=== PATIENT | female | born 1985 | race Caucasian/White ===

== ENCOUNTER 2017-01-23 17:09 | Emergency (ER) | payer OTHER ==
[2017-01-23 17:15] VITALS: RESP 16; TEMP 97.3; O2SAT 98
--- NOTE | 2017-01-23 18:10 | RAD ---
PROCEDURE: Left Ankle Radiographs. HISTORY: Pain s/p fall COMPARISON: None available. FINDINGS: BONES: No acute displaced fracture. JOINTS: No dislocation. SOFT TISSUES: Soft tissue swelling. No evidence of radiopaque foreign body. OTHER FINDINGS: None. IMPRESSION: Soft tissue swelling. No acute displaced fracture, dislocation, or significant joint effusion identified. If symptoms persist or if there is clinical concern, x-ray follow-up in 7-10 days should be considered.
--- NOTE | 2017-01-23 18:24 | RAD ---
PROCEDURE: Radiographs of the left tibia and fibula. HISTORY: Pain s/p fall COMPARISON: None available. TECHNIQUE: Frontal and lateral views obtained. FINDINGS: BONES: No acute displaced fracture. JOINT SPACES: No dislocation. OTHER FINDINGS: Soft tissues appear unremarkable. No evidence of radiopaque foreign body. IMPRESSION: No acute displaced fracture, dislocation, or significant joint effusion identified. If symptoms persist, or if there is continued clinical concern, x-ray follow-up in 7-10 days should be considered.
--- NOTE | 2017-01-23 18:28 | C.PDOC ---
- HPI Time Seen by Provider: 01/23/17 17:22 Chief Complaint (Nursing): Lower Extremity Problem/Injury History Per: Patient, EMS Injury Occurred (Timing): Just Before Arrival Description Of Injury (Context): Pt fell down stairs Location Of Injury: Right: Leg, Left: Ankle Severity: Moderate Additional History Per: Prior Records Past Medical History Reviewed: Historical Data, Nursing Documentation, Vital Signs Vital Signs: Last Vital Signs Temp 97.3 F L 01/23/17 17:13 Pulse 80 01/23/17 17:13 Resp 16 01/23/17 17:13 BP 113/76 01/23/17 17:13 Pulse Ox 98 01/23/17 17:13 - Medical History PMH: No Chronic Diseases Family History: States: Unknown Family Hx - Social History Hx Tobacco Use: No Hx Alcohol Use: No Hx Substance Use: No - Immunization History Hx Tetanus Toxoid Vaccination: No Hx Influenza Vaccination: No Hx Pneumococcal Vaccination: No Review Of Systems Except As Marked, All Systems Reviewed And Found Negative. Constitutional: Negative for: Fever, Weakness Cardiovascular: Negative for: Chest Pain Respiratory: Negative for: Shortness of Breath Gastrointestinal: Negative for: Vomiting, Abdominal Pain Musculoskeletal: Positive for: Leg Pain (right). Negative for: Neck Pain Skin: Negative for: Rash Neurological: Negative for: Weakness, Numbness, Seizures, Altered Mental Status , Headache Physical Exam - Physical Exam Appears: Non-toxic, No Acute Distress Skin: Normal Color, Warm, Dry, No Rash Head: Atraumatic, Normacephalic Eye(s): bilateral: Normal Inspection, PERRL, EOMI Neck: Normal ROM, Supple Extremity: Normal ROM, Tenderness (around left lateral mal and right anterior leg), No Calf Tenderness, Capillary Refill (wnl), No Deformity, Swelling ( around left lateral mal.) Pulses: Left Dorsalis Pedis: Normal, Right Dorsalis Pedis: Normal Neurological/Psych: Oriented x3, Normal Motor, Normal Sensation ED Course And Treatment O2 Sat by Pulse Oximetry: 98 Pulse Ox Interpretation: Normal - Other Rad Left ankle x-rays X-Ray: Viewed By Me, Read By Radiologist Interpretation: IMPRESSION: Soft tissue swelling. No acute displaced fracture , dislocation, or significant joint effusion identified. Right tib/fib x-rays X-Ray: Interpreted by Me, Viewed By Me Interpretation: No acute fx. Progress Note: Left ankle was placed in marc wrap. Reassessment Condition: Improved Disposition Counseled Patient/Family Regarding: Studies Performed, Diagnosis, Need For Followup, Rx Given - Disposition Referrals: [facility] [Outside] Gama Aquino MD [Staff Provider] - Disposition: HOME/ ROUTINE Disposition Time: 18:30 Condition: IMPROVED Additional Instructions: Rest. Elevate. Ice. MARC wrap. Follow up with an orthopedic doctor if still symptomatic in 1 week. Return to the ER if you develop worsening of symptoms or if you have any other concerns. Prescriptions: Naproxen [Naprosyn] 1 tab PO BID PRN #20 tab PRN Reason: Pain Instructions: Ankle Sprain (ED) Print Language: GREEK - Clinical Impression Clinical Impression: Left ankle sprain, Contusion of right leg
--- NOTE | 2017-01-23 18:45 | RAD ---
PROCEDURE: Radiographs of the right tibia and fibula. HISTORY: r/o fx COMPARISON: None available. TECHNIQUE: Frontal and lateral views obtained. FINDINGS: BONES: Bone alignment and mineralization are normal. There is no acute fracture or bone destruction JOINT SPACES: Unremarkable. OTHER FINDINGS: None. IMPRESSION: No acute fracture.
[2017-01-23 18:50] VITALS: BP 132/85; PULSE 84
== END 2017-01-23 18:49 | disposition home or self-care (01) ==
LOC: C.ER 17:09
DX: S93.402A Sprain of unspecified ligament of left ankle, initial encounter (principal); S80.11XA Contusion of right lower leg, initial encounter; W10.9XXA Fall (on) (from) unspecified stairs and steps, initial encounter

== ENCOUNTER 2017-06-06 09:06 | Emergency (ER) | payer OTHER ==
[2017-06-06 09:22] VITALS: RESP 16
[2017-06-06] MEDS ORDERED: Sodium Chloride 0.9% 1,000 ML IV ONE (09:44)
--- NOTE | 2017-06-06 09:49 | C.PDOC ---
History Of Present Illness 32 y/o female, history of hyperlipidemia, c/o abdominal pain "for a long time" but worsening over the last few days. Patient reports pain localized to epigastric region. Denies fevers, nausea, vomiting, or other complaints. Time Seen by Provider: 06/06/17 09:31 Chief Complaint (Nursing): Abdominal Pain History Per: Patient History/Exam Limitations: no limitations Onset/Duration Of Symptoms: Days Current Symptoms Are (Timing): Still Present Location Of Pain/Discomfort: Epigastric Radiation Of Pain To:: None Quality Of Discomfort: "Pain" Associated Symptoms: denies: Fever, Chills, Nausea, Vomiting, Diarrhea Recent travel outside of the [place]: No Abnormal Vaginal Bleeding: No Past Medical History Reviewed: Historical Data, Nursing Documentation, Vital Signs Vital Signs: Last Vital Signs Temp 97.7 F 06/06/17 09:20 Pulse 66 06/06/17 09:20 Resp 16 06/06/17 09:20 BP 106/77 06/06/17 09:20 Pulse Ox 99 06/06/17 10:00 - Medical History PMH: No Chronic Diseases - [facility] Procedures MONITORING NOS (06/03/13) Family History: States: Unknown Family Hx - Social History Hx Tobacco Use: No Hx Alcohol Use: No Hx Substance Use: No - Immunization History Hx Tetanus Toxoid Vaccination: No Hx Influenza Vaccination: No Hx Pneumococcal Vaccination: No Review Of Systems Except As Marked, All Systems Reviewed And Found Negative. Constitutional: Negative for: Fever, Chills Cardiovascular: Negative for: Chest Pain Respiratory: Negative for: Cough, Shortness of Breath Gastrointestinal: Positive for: Abdominal Pain. Negative for: Nausea, Vomiting Skin: Negative for: Rash Physical Exam - Physical Exam Appears: Non-toxic, No Acute Distress Skin: Normal Color, Warm, Dry Head: Atraumatic, Normacephalic Oral Mucosa: Moist Chest: Symmetrical Cardiovascular: Rhythm Regular, No Murmur Respiratory: Normal Breath Sounds, No Rales, No Rhonchi, No Wheezing Gastrointestinal/Abdominal: Soft, Tenderness (epigastric), No Guarding, No Rebound Back: Normal Inspection, No CVA Tenderness Extremity: Normal ROM, Capillary Refill (< 2 sec. ) Neurological/Psych: Oriented x3, Normal Speech, Normal Cognition ED Course And Treatment - Laboratory Results Result Diagrams: 06/06/17 10:05 06/06/17 10:05 O2 Sat by Pulse Oximetry: 99 (RA) Pulse Ox Interpretation: Normal Medical Decision Making Medical Decision Making: consider gastritis, pud, gallbladder disease (noted recent us with gallstones) Plan: * Protonix, IVF * Labs, Ultrasound, UA * reassess Progress:pt on period, noted blood in urine 1115: pt reassesed; pain improved. abd soft no ttp. pt notified of results of gallstones, no e/o of cholecystis. no leukocytosis, no fever. strict return precautions advised. Disposition - Disposition Referrals: Abbi SILVEIRA,MD [facility] [Medical Doctor] - Twin Rae MD [Staff Provider] - [facility] [Outside] [facility] [Outside] [facility] [Outside] [facility] [Outside] Disposition: HOME/ ROUTINE Disposition Time: 11:14 Condition: STABLE Additional Instructions: please see specialist. return to er with worsening symptoms or concerns. Instructions: Gallstones (ED), Acute Abdominal Pain (DC) Forms: [employer] (Icelandic) Print Language: SINHALA - Clinical Impression Clinical Impression: Abdominal pain, Cholelithiasis - Scribe Statement The provider has reviewed the documentation as recorded by the Scribe SM Provider Attestation: All medical record entries made by the Scribe were at my direction and personally dictated by me. I have reviewed the chart and agree that the record accurately reflects my personal performance of the history, physical exam, medical decision making, and the department course for this patient. I have also personally directed, reviewed, and agree with the discharge instructions and disposition.
[2017-06-06 09:54] LABS: URINE BILIRUBIN NEGATIVE (NEGATIVE); URINE BLOOD 3+ (NEGATIVE); URINE COLOR Yellow (YELLOW); URINE GLUCOSE (UA) NORMAL (Normal); URINE KETONE NEGATIVE (NEGATIVE); URINE PROTEIN NEGATIVE (NEGATIVE); URINE UROBILINOGEN NORMAL mg/dL (0.2-1.0); WBC URINE 2 /hpf (0-5)
[2017-06-06] MEDS ORDERED: Sodium Chloride 0.9% 1,000 ML ONE (09:55)
[2017-06-06 09:57] LABS: RBC URINE 4 /hpf (0-3); URINE LEUKOCYTE ESTERASE NEGATIVE Leu/uL (Negative)
[2017-06-06 10:13] LABS: BASO # 0.1 K/uL (0.0-0.2); BASO % 1.1 % (0.0-2.0); EOS # 0.2 K/uL (0.0-0.7); EOS % 3.7 % (0.0-4.0); HEMATOCRIT 38.6 % (34.0-47.0); LYMPH # 2.1 K/uL (1.0-4.3); LYMPH % 31.9 % (20.0-40.0); MEAN CELL VOLUME 90.5 fL (81.0-99.0); MEAN CORPUSCULAR HEMOGLOBIN 30.5 pg (27.0-31.0); MEAN CORPUSCULAR HGB CONC 33.7 g/dL (33.0-37.0); MEAN PLATELET VOLUME 10.9 fL (7.2-11.7); MONO # 0.5 K/uL (0.0-0.8); MONO % 7.5 % (0.0-10.0); RED CELL DISTRIBUTION WIDTH 12.8 % (11.5-14.5); WHITE BLOOD COUNT 6.7 K/uL (4.8-10.8)
[2017-06-06 10:21] LABS: ALKALINE PHOSPHATASE 99 U/L (38-126); ALT/SGPT 55 U/L (9-52); AST/SGOT 26 U/L (14-36); BILIRUBIN,TOTAL 0.4 mg/dL (0.2-1.3); BLOOD UREA NITROGEN 12 mg/dL (7-17); CALCIUM 8.1 mg/dl (8.6-10.4); CARBON DIOXIDE 26 mmol/L (22-30); CHLORIDE 102 mmol/L (98-107); GFR AFRICAN-AMERICAN > 60; GLUCOSE,RANDOM 86 mg/dL (65-105); INR 1.2; POTASSIUM 3.6 mmol/L (3.6-5.2); SODIUM 138 mmol/L (132-148); TOTAL PROTEIN 7.9 g/dL (6.3-8.3)
[2017-06-06 10:22] LABS: BILIRUBIN,DIRECT 0.2 mg/dL (0.0-0.4)
--- NOTE | 2017-06-06 11:10 | US ---
HISTORY: abd pain COMPARISON: None. TECHNIQUE: Sonographic evaluation of the abdomen. FINDINGS: LIVER: Measures 16.4 cm. Diffusely increased echogenicity of the liver parenchyma. Consistent fatty infiltration. No mass. No biliary dilatation. Smooth contour. Hepatopetal portal venous flow demonstrated. GALLBLADDER: Cholelithiasis. No mural thickening or pericholecystic fluid. Negative sonographic Baldwin sign. COMMON BILE DUCT: Measures 3 mm. No stones. No dilatation. PANCREAS: Unremarkable as visualized. No mass. No ductal dilatation. RIGHT KIDNEY: Measures 12.9cm. Normal echogenicity. No calculus, mass, or hydronephrosis. LEFT KIDNEY: Measures 12.1cm. Normal echogenicity. No calculus, mass, or hydronephrosis. SPLEEN: Normal in size and contour. No mass. AORTA: No aneurysmal dilatation. IVC: Unremarkable. OTHER FINDINGS: None. IMPRESSION: Fatty liver. Cholelithiasis without evidence of cholecystitis. No additional abnormality.
[2017-06-06 11:26] VITALS: BP 108/72; PULSE 64; TEMP 98.2; O2SAT 100
== END 2017-06-06 11:26 | disposition home or self-care (01) ==
LOC: C.ER 09:06 → MERGE 09:06 → C.ER 11:26
DX: K80.20 Calculus of gallbladder without cholecystitis without obstruction (principal); R10.9 Unspecified abdominal pain; E78.5 Hyperlipidemia, unspecified
CPT/HCPCS: 76700; 80053; 81001; 82248; 83690; 84703; 85025; 85610; 85730; 96361; 96374; 99285; C9113; J7040

== ENCOUNTER 2017-06-27 11:53 | Day surgery (SDC) | payer SELFPAY ==
[2017-06-20 08:52] VITALS: BMI 41.3
[2017-06-27] MEDS ORDERED: Bupivacaine-Epi 0.25%-1:200,000 PF Inj ONE (12:48)
[2017-06-27] MEDS ORDERED: Lidocaine 1% Inj (20ml) ONE ×2 (12:48→13:11)
[2017-06-27] MEDS ORDERED: ceFAZolin IV 1 gm in Dextrose 1 GM/50 ML BAG IVPB ONE (13:11)
[2017-06-27] MEDS ORDERED: Lactated Ringer's 1,000 ML IV ONE ×2 (13:11→14:48)
[2017-06-27] MEDS ORDERED: Bupivacaine 0.5%/Epi 1:200,000 (10 ML SOL) ONE (13:11)
[2017-06-27] MEDS ORDERED: Propofol 10 mg/ml Inj (20 ML) ONE (13:12)
[2017-06-27] MEDS ORDERED: Midazolam 2 MG/2 ML VIAL ONE (13:12)
[2017-06-27] MEDS ORDERED: Rocuronium 10 mg/ml (5 ml) ONE (13:12)
[2017-06-27] MEDS ORDERED: Succinylcholine Chloride 20 mg/ml Syr (5 ml) IV ONE (13:12)
--- NOTE | 2017-06-27 14:39 | PCM.SURG1 ---
Surgeon's Initial Post Op Note - Surgeon's Notes Surgeon: Dr Acosta Welding Foreman: Dr Still PGY3, Dr Gamino PGY1 Type of Anesthesia: General Endo Pre-Operative Diagnosis: symptomatic cholelithiasis Operative Findings: see report Post-Operative Diagnosis: see report Operation Performed: laparoscopic cholecystectomy Specimen/Specimens Removed: gallbladder Estimated Blood Loss: EBL {In ML}: 10 Blood Products Given: N/A Drains Used: No Drains Post-Op Condition: Good Date of Surgery/Procedure: 06/27/17 Time of Surgery/Procedure: 14:38
[2017-06-27] MEDS ORDERED: Oxycodone/Acetaminophen 5/325 mg Tab PO PRN (14:40)
[2017-06-27] MEDS ORDERED: Neostigmine Methylsulfate 3mg/3ml Syringe IV ONE (14:47)
[2017-06-27] MEDS ORDERED: Sodium Chloride 0.9% 1,000 ML IV ONE (14:48)
[2017-06-27] MEDS: HYDROmorphone 0.5 mg/0.5 ml ISec IVP PRN ×2 (15:03→16:10)
[2017-06-27 17:00] VITALS: BP 110/80; PULSE 80; RESP 18; TEMP 97; O2SAT 100
--- NOTE | 2017-06-28 01:36 | OP ---
PROCEDURE DATE: 06/27/2017 PREOPERATIVE DIAGNOSIS: Chronic cholecystitis and cholelithiasis. POSTOPERATIVE DIAGNOSES: 1. Chronic cholecystitis and cholelithiasis. 2. Post infectious adhesion. PROCEDURES DONE: 1. Laparoscopic cholecystectomy. 2. Laparoscopic lysis of adhesion. SURGEON: The procedure was done by Dr. Dave kelly. ASSISTANTS: Masood Still, PGY-3 resident and Memo Gamino, PGY-1 resident. ANESTHESIA: General endotracheal tube anesthesia. ESTIMATED BLOOD LOSS: Around 10 mL. DRAIN: None. PATHOLOGY: Gallbladder with gallstone was sent to the pathology. COMPLICATIONS: None. INTRAOPERATIVE FINDINGS: Patient had changes of chronic cholecystitis and cholelithiasis as well as omental and duodenal adhesion to the gallbladder. DESCRIPTION OF PROCEDURE: On intraoperative steps, this 32-year-old female was diagnosed with chronic cholecystitis and cholelithiasis, and patient was consented for laparoscopic cholecystectomy, possible open, brought to the OR, placed supine on operating table, after induction of the anesthesia, abdomen was prepped and draped in usual sterile fashion. Supraumbilical transverse incision was made. After incising the skin, subcutaneous tissue, and the fascia, Zabrina port was placed. Pneumo was created. Another 12-mm port was placed in the midline below costal margin and two 5-mm ports were placed in midclavicular and anterior axillary line. After that, grasper and dissector was introduced and gallbladder was retracted cranially. Calot triangle dissection was done. Cystic duct and cystic artery was identified. Patient had omental adhesion as well as duodenal adhesion to the gallbladder, and all the adhesions were taken down with the blunt and sharp dissection to expose the infundibulum as well as the Calot triangle and now the Calot triangle dissection was done. The cystic duct and cystic artery were identified and clipped at three places and cut in between two clips nearby gallbladder, and gallbladder was dissected free from the gallbladder fossa, taken in an EndoCatch bag, taken out through the umbilical port site, and sent off the table for pathology. There was proper hemostasis in each and every part of the procedure. The suction irrigation of the gallbladder fossa as well as perihepatic area was done and all the fluid was suctioned out and all the ports were taken out under vision, pneumo was deflated. Umbilical port site was closed in two layers, the fascia with 0 Vicryl interrupted sutures, skin with a 4-0 Monocryl, and dry sterile dressing was applied. Patient tolerated the procedure well. Count of the instrument and gauze was correct. There was no apparent complication. Matthieu Acosta MD
== END 2017-06-27 17:39 | disposition home or self-care (01) ==
LOC: C.SDS 11:53
PROVIDERS: ATTEND Surgery Surgical Critical Care
DX: K80.20 Calculus of gallbladder without cholecystitis without obstruction (principal)
CPT/HCPCS: 47562; 88304; J0690; J1170; J1885; J2001; J2250; J2704; J2710; J3010; J7040; J7120

== ENCOUNTER 2018-11-24 08:49 | Emergency (ER) | payer OTHER ==
[2018-11-24 08:49] VITALS: BMI 40.9
[2018-11-24 09:10] VITALS: RESP 20
--- NOTE | 2018-11-24 09:57 | C.PDOC ---
History Of Present Illness 33 y/o female presents to the ER complaining bilateral eye redness and itching sensation which has been present for the past 1 month. Patient states that she also has intermittent frontal headache and nasal congestion. Patient reports that she does not wear eyeglasses and she has not been able to see far for a long period of time. She notes that she has to follow up with an eye doctor. She states that she was seen in a clinic and she was prescribed eye drops ( unknown) without relief. Denies having eye pain, recent visual changes, fever,chills, cough, neck pain, nausea, and vomiting. Chief Complaint (Nursing): Eye Problem History Per: Patient History/Exam Limitations: no limitations Onset/Duration Of Symptoms: Days Current Symptoms Are (Timing): Still Present Severity: Moderate Past Medical History Reviewed: Historical Data, Nursing Documentation, Vital Signs Vital Signs: Last Vital Signs Temp 98.7 F 11/24/18 09:09 Pulse 56 L 11/24/18 09:09 Resp 20 11/24/18 09:09 BP 132/83 11/24/18 09:09 Pulse Ox 99 11/24/18 09:09 Primary Care Provider: Clinic,Med Surg - Medical History PMH: Fractures (jaw), Gall Bladder Disease Denies: Chronic Kidney Disease Other Surgeries: Hx of surgeries - [facility] Procedures MONITORING NOS (06/03/13) Family History: States: No Known Family Hx - Social History Hx Tobacco Use: No Hx Alcohol Use: No Hx Substance Use: No - Immunization History Hx Tetanus Toxoid Vaccination: No Hx Influenza Vaccination: No Hx Pneumococcal Vaccination: No Review Of Systems Except As Marked, All Systems Reviewed And Found Negative. Constitutional: Negative for: Fever, Chills Eyes: Positive for: Redness ENT: Positive for: Nose Congestion Respiratory: Negative for: Cough Gastrointestinal: Negative for: Nausea, Vomiting, Abdominal Pain Musculoskeletal: Negative for: Neck Pain Neurological: Positive for: Headache Physical Exam - Physical Exam Appears: Well, Non-toxic, No Acute Distress Skin: Normal Color, Warm, Dry Head: Atraumatic, Normacephalic, Tenderness (mild tenderness to frontal maxillary sinuses) Eye(s): bilateral: PERRL, EOMI, Other (eyes are injected,normal skin around eyes, no debris, no lashes; visual acuity: left: 20/200, right: 20/100 bilater al: 100) Neck: Supple Chest: Symmetrical Neurological/Psych: Oriented x3, Normal Speech ED Course And Treatment O2 Sat by Pulse Oximetry: 99 (RA) Pulse Ox Interpretation: Normal Medical Decision Making Medical Decision Making: Patient has been discharged with prescription for Claritin and instructed to follow up with presentation team member. Disposition Counseled Patient/Family Regarding: Diagnosis, Need For Followup - Disposition Referrals: [facility] [Outside] [facility] [Outside] Devante Jacob [Staff Provider] - Disposition: HOME/ ROUTINE Disposition Time: 10:10 Condition: GOOD Prescriptions: Loratadine/Pseudoephedrine [Claritin-D 24 Hour Tablet] 1 each PO DAILY #30 tab.er.24h Instructions: Seasonal Allergies (DC), Sinusitis, Adult (DC) Forms: Gen Discharge Inst Citizen Of [place], [employer] (Citizen Of [place]) Print Language: ENGLISH - Clinical Impression Clinical Impression: Rhinitis, allergic, Sinusitis - Scribe Statement The provider has reviewed the documentation as recorded by the Thong Mehta Provider Attestation: All medical record entries made by the Thong were at my direction and personally dictated by me. I have reviewed the chart and agree that the record accurately reflects my personal performance of the history, physical exam, medical decision making, and the department course for this patient. I have also personally directed, reviewed, and agree with the discharge instructions and disposition.
[2018-11-24 10:28] VITALS: BP 117/83; PULSE 57; TEMP 98.5
[2018-11-24 13:47] VITALS: O2SAT 99
== END 2018-11-24 10:26 | disposition home or self-care (01) ==
LOC: C.ER 08:49
DX: J30.9 Allergic rhinitis, unspecified (principal); J32.9 Chronic sinusitis, unspecified